=== PATIENT | male | born 1965 | race Caucasian/White ===

== ENCOUNTER 2018-08-27 13:00 | Outpatient (CLI) | payer BC, OTHER ==
[~2018-08-27] VITALS: Ht 188 cm; Wt 69.4 kg
[~2018-08-27 13:00] MED LIST: ALPR1TAB2 PO; DZPM2T; IBUP-1780 PO; LISI-552 PO
== END 2018-08-27 14:23 | disposition home or self-care (01) ==
LOC: PREOP 13:00
PROVIDERS: ATTEND Surgery
DX: Z01.818 Encounter for other preprocedural examination (principal)

== ENCOUNTER 2018-09-02 12:42 | Day surgery (SDC) | payer BC, OTHER ==
[~2018-09-02] VITALS: Ht 188 cm; Wt 69.4 kg
[2018-09-02 12:45] VITALS: BP 120/82
--- OUTSIDE RECORDS SUMMARY | 2018-09-02 12:45 | XMS REPORT | Continuity of Care Document ---
Author Author [facility] Organization [facility] Address Unknown Phone Unavailable Allergies Active Description Code Type Severity Reaction Onset Reported/Identified Relationship to Patient Clinical Status Yes BUTORPHANOL TARTRATE UNKNOWN GI PROBLEMS - VOMITI Yes No Known Drug Allergies [id number] Drug Allergy Mild N/A 05/24/2008 Medications There is no data. Problems Date Dx Coded Attending Type Code Diagnosis Diagnosed By 08/14/2018 Rossy Gilliland W 780.4 DIZZINESS AND GIDDINESS 08/14/2018 Darshana, Rossy W R42 DIZZINESS AND GIDDINESS 08/14/2018 Darshana, Rossy W 300.00 08/14/2018 Darshana, Rossy W 578.1 BLOOD IN STOOL 08/14/2018 Darshana, Rossy W 780.4 DIZZINESS AND GIDDINESS 08/14/2018 Darshana, Rossy W 780.79 OTHER MALAISE AND FATIGUE 08/14/2018 Darshana, Rossy W 785.0 08/14/2018 Darshana, Rossy W 787.01 NAUSEA WITH VOMITING 08/14/2018 Darshana, Rossy W 787.91 DIARRHEA 08/14/2018 Darshana, Rossy W F41.9 ANXIETY DISORDER, UNSPECIFIED 08/14/2018 Darshana, Rossy W K92.1 MELENA 08/14/2018 Darshana, Rossy W R00.0 TACHYCARDIA, UNSPECIFIED 08/14/2018 Darshana, Rossy W R11.2 NAUSEA WITH VOMITING, UNSPECIFIED 08/14/2018 Darshana, Rossy W R19.7 DIARRHEA, UNSPECIFIED 08/14/2018 Darshana, Rossy W R42 DIZZINESS AND GIDDINESS 08/14/2018 Darshana, Rossy W R53.1 WEAKNESS 08/14/2018 Darshana, Rossy W 300.00 08/14/2018 Darshana, Rossy W 578.1 BLOOD IN STOOL 08/14/2018 Darshana, Rossy W 780.4 DIZZINESS AND GIDDINESS 08/14/2018 Darshana, Rossy W 780.79 08/14/2018 Darshana, Rossy W 785.0 08/14/2018 Darshana, Rossy W 787.01 08/14/2018 Darshana, Rossy W 787.91 DIARRHEA 08/14/2018 Darshana, Rossy W F41.9 ANXIETY DISORDER, UNSPECIFIED 08/14/2018 Darshana, Rossy W K92.1 MELENA 08/14/2018 Darshana, Rossy W R00.0 TACHYCARDIA, UNSPECIFIED 08/14/2018 Darshana, Rossy W R11.2 NAUSEA WITH VOMITING, UNSPECIFIED 08/14/2018 Darshana, Rossy W R19.7 DIARRHEA, UNSPECIFIED 08/14/2018 Darshana, Rossy W R42 DIZZINESS AND GIDDINESS 08/14/2018 Darshana, Rossy W R53.1 WEAKNESS 08/27/2018 ROSALINO SELF DO Ot Z01.818 ENCOUNTER FOR OTHER PREPROCEDURAL EXAMIN 08/27/2018 ROSALINO SELF DO B Ot Z01.818 ENCOUNTER FOR OTHER PREPROCEDURAL EXAMIN 08/27/2018 CATY SELF DOIC B Ot Z01.818 ENCOUNTER FOR OTHER PREPROCEDURAL EXAMIN 08/31/2018 CATY SELF DOIC B Ot Z01.818 ENCOUNTER FOR OTHER PREPROCEDURAL EXAMIN Procedures There is no data. Results Test Result Range Stool Culture - 08/14/18 09:50 Stool Culture Note Ova + Parasite Exam - 08/14/18 09:50 Ova + Parasite Exam Note C.difficile, DNA Amplification - 08/14/18 09:50 C.difficile, DNA Amplification NEGATIVE: No DNA evidence of toxogenic C. difficile detected. Negative Stool Culture - 08/14/18 09:50 CAMPYLOBACTER CULTURE FINAL REPORT E COLI SHIGA TOXIN EIA NEGATIVE NEGATIVE RESULT 1 NO SALMONELLA OR SHIGELLA RECOVERED. Salmonella/Shigella Screen FINAL REPORT Result 1 NO CAMPYLOBACTER SPECIES ISOLATED. Ova + Parasite Exam - 08/14/18 09:50 OVA + PARASITE EXAM FINAL REPORT RESULT 1 NO OVA, CYSTS, OR PARASITES SEEN. Encounters ACCT No. Visit Date/Time Discharge Status Pt. Type Provider Facility Loc./Unit Complaint [id number] 08/27/2018 13:00:00 08/27/2018 14:23:00 DIS Outpatient ROSALINO SELF DO [facility] PREOP COLONOSCOPY/EGD [id number] 10/15/2014 02:31:00 10/15/2014 02:31:00 CAN Preadmit [place] [facility] ER [id number] 09/02/2018 14:40:00 PEN Preadmit ROSALINO SELF DO [facility] GALDINO HOOK [id number] 08/20/2018 04:12:00 Document Registration [id number] 08/14/2018 12:38:00 08/14/2018 23:59:00 DIS Outpatient Rossy Gilliland 10/15/2014 02:38:14 ACT Document Registration
[2018-09-02] MEDS ORDERED: LACTATED RINGERS 1,000 ML IV STA (12:47)
[2018-09-02] MEDS ORDERED: LACTATED RINGERS 1,000 ML IV ONE (12:48)
[2018-09-02] MEDS ORDERED: HURRICAINE EXT TUBE (BENZOCAINE) XX PRN (13:00)
--- NOTE | 2018-09-02 13:24 | Progress Note-Pre Operative ---
Pre-Operative Progress Note H&P Reviewed The H&P was reviewed, patient examined and no changes noted. Time Seen by Provider: 13:22 Date H&P Reviewed: Sep 02, 2018 Time H&P Reviewed: 13:21 Pre-Operative Diagnosis: ROSALINO Beltran DO Sep 02, 2018 13:24
[2018-09-02] MEDS ORDERED: PROPOFOL INJECTION 50 ML IV ONE (13:51)
[2018-09-02] MEDS ORDERED: MIDAZOLAM 2 MG/2 ML (VERSED) VIAL ONE ×2 (13:51→14:08)
[2018-09-02] MEDS ORDERED: fentaNYL INJECTION 100 MCG/2 ML AMP ONE (14:12)
[2018-09-02] MEDS ORDERED: proPOfol 200 MG/20 ML (DIPRIVAN) VIAL IV ONE (14:42)
--- NOTE | 2018-09-02 15:04 | Progress Note-Post Operative ---
Post-Operative Progess Note Surgeon (s)/Short Order Cook (s) Surgeon ROSALINO SELF DO Short Order Cook: Cipriano Giraldo MSIII Pre-Operative Diagnosis melena Post-Operative Diagnosis Duodenitis Gastritis ??Sims's Esophagus Colon Polyps Diverticula Internal Hemorrhoids Procedure & Operative Findings Date of Procedure 09/02/18 Procedure Performed/Findings EGD with bx Colon with snare Anesthesia Type IV sedation by AIRCRAFT ARMAMENT MECHANIC Estimated Blood Loss Estimated blood loss (mL): scant Specimens/Packing Specimens Removed Duodenal bx, Antral bx, GE jxn bx Colon Polyps ROSALINO SELF DO Sep 02, 2018 15:04
--- NOTE | 2018-09-02 15:06 | Endoscopy Discharge Instruct ---
Endo Procedure/Findings Findings 1.: Gastritis, Sims's Esophagus 2.: Polyp 3.: Diverticulosis 4.: Internal Hemorrhoids Discharge Instructions - Activity: You might feel a little sleepy until tomorrow. This is due to the medicine you received to relax you. Until tomorrow, you should: NOT drive a car, operate machinery or power tools. NOT drink any alcoholic beverages. NOT make any important decisions or sign importortant papers. Do not return to work until tomorrow, unless otherwise instructed. Resume previous activities tomorrow. Diet: Start by taking liquids. If you tolerate liquids, advance to solid food. Make an appointment in one week. Instructions: 1.: Colonoscopy in 1 year 2.: EGD in 1 year Notify Physician - If you experience excessive bleeding, unusual abdominal pain, fever, or chest pain, contact your doctor immediately. Follow-Up: - I have received and understand the above instructions and will call my doctor if I have any further questions. Patient Signature Date Nurse Signature Other (Relationship) ROSALINO SELF DO Sep 02, 2018 15:06
--- NOTE | 2018-09-02 15:07 | Anesthesia-General Post-Op ---
MAC Patient Condition Mental Status/LOC: Same as Preop Cardiovascular: Satisfactory Nausea/Vomiting: Absent Respiratory: Satisfactory Pain: Controlled Complications: Absent Post Op Complications Complications None Follow Up Care/Instructions Patient Instructions None needed. Anesthesiology Discharge Order Discharge Order Patient is doing well, no complaints, stable vital signs, no apparent adverse anesthesia problems. No complications reported per nursing. ERIBERTO CONRAD CRNA Sep 02, 2018 15:07
[2018-09-02 15:25] VITALS: BP 112/65
[2018-09-02 15:40] VITALS: BP 134/76
[2018-09-02 16:23] VITALS: BP 134/76
--- NOTE | 2018-09-03 22:03 | OPERATIVE REPORT ---
DATE OF SERVICE: 09/02/2018 PREOPERATIVE DIAGNOSES: Melena. POSTOPERATIVE DIAGNOSES: 1. Duodenitis. 2. Gastritis. 3. Questionable Sims esophagus. 4. Polyps. 4. Diverticula. 5. Internal hemorrhoids. PROCEDURES: 1. EGD with biopsy. 2. Colonoscopy with snare polypectomy. SURGEON: Pop Reyes DO STUDENT DEVELOPMENT SPECIALIST: None. ANESTHESIA: IV sedation by INFORMATION SYSTEMS AUDIT MANAGER. SPECIMEN: 1. Biopsy from the duodenum, biopsy from the fundus, biopsy from the antrum and biopsy from GE junction. 2. Descending colon polyp. 3. Transverse colon polyp. 4. Rectal polyp x2. 5. Transverse colon polyp. 6. Ascending colon. 7. Transverse. 8. Descending. 9. Sigmoid polyp. BLOOD LOSS: Scant. FLUIDS: Per anesthesia. POSTOPERATIVE CONDITION: Stable. INDICATION FOR PROCEDURE: The patient is a 53-year-old male who has been having some melena and needed a workup. FINDINGS: He had an EGD, which showed duodenitis, gastritis and questionable Sims's. Colon findings, he had multiple polyps and two or three of them were very large. He also had diverticula and some internal hemorrhoids. PROCEDURE NOTE: After informed consent was obtained, the patient was brought to the endoscopy suite, placed in the bed left lateral decubitus position. He was administered IV sedation. During the case his vitals monitored the entire time by the INFORMATION SYSTEMS AUDIT MANAGER. Started first with the EGD, passed the scope down the mouth through the esophagus and into the stomach. In the stomach pushed into the antrum, past the antrum into the duodenum, noted some duodenitis, took a biopsy here, pulled back and taken a biopsy of the antrum and then retroflexed, saw some more irritation and inflammation and did another biopsy of fundus. Then pulled back into the GE junction, looked like a Sims's esophagus and did another biopsy here. Pulled up, the rest of the esophagus looked fine and then pulled out and switched gloves and went to the other side using the scope and started the colonoscopy. On the way in noted 2 large polyps. Elected to go past these, but then trying to get to the cecum found multiple polyps, small polyps in the descending colon, transverse colon, couple of rectal polyps and then found in the transverse, ascending and then the descending and then large ones in the sigmoid colon. I was able to get all the way to cecum, took a picture of appendiceal orifice, noted some very small diverticula on the way in. Once in the cecum, took a picture of appendiceal orifice, noted the ileocecal valve and then I slowly withdrew the scope insufflating to look circumferentially at the [place] looking at the cecum up the ascending colon. This is where we had found 1 polyp to the hepatic flexure, down the transverse colon found multiple polyps here to the splenic flexure and into the descending colon. Again, found another 2 small polyps here and then down the sigmoid, we found 2 large polyps, one of which we have to take in 2 pieces to get the base and then down into the rectum, I found a couple of rectal polyps, removed these and then all with a snare polypectomy. The 2 larger ones, we had to use a larger snare to get them out. Retroflexed in the rectal vault and saw some minimal internal hemorrhoids, took a picture of this and then removed the scope. The patient tolerated the procedure and then he was recovered in endoscopy suite. Job ID: [id number] DocumentID: [id number] Dictated Date: 09/03/2018 21:05:29 Chipper Date: 09/03/2018 22:03:00 Dictated By: POP REYES DO
== END 2018-09-02 15:55 | disposition home or self-care (01) ==
LOC: ENDO 12:42
PROVIDERS: ATTEND Surgery
DX: K29.80 Duodenitis without bleeding (principal); K29.50 Unspecified chronic gastritis without bleeding; D12.4 Benign neoplasm of descending colon; D12.3 Benign neoplasm of transverse colon; D12.2 Benign neoplasm of ascending colon; D12.5 Benign neoplasm of sigmoid colon; K63.5 Polyp of colon; K57.30 Diverticulosis of large intestine without perforation or abscess without bleeding; K64.8 Other hemorrhoids; R49.0 Dysphonia; I10 Essential (primary) hypertension; F17.210 Nicotine dependence, cigarettes, uncomplicated
CPT/HCPCS: 88305

== ENCOUNTER 2018-09-29 10:22 | Outpatient (RCR) | payer OTHER | END 2018-12-28 | disposition home or self-care (01) | LOC: LAB 10:22 | PROVIDERS: ATTEND Surgery | DX: A04.8 Other specified bacterial intestinal infections (principal) | CPT/HCPCS: 36415; 87338 ==

== ENCOUNTER → 2021-09-25 | Outpatient (CLI) | payer OTHER ==
[~2021-09-25] MED LIST changes: -LISI-552 PO; +LISI20TA26 PO; +RT-ALBUTEROL SULF 2.5 MG/3 ML PRE-MIX VIAL INH ONE
== END ==
LOC: RT 13:00
PROVIDERS: ATTEND Registered Nurse
DX: R06.00 Dyspnea, unspecified (principal); Z72.0 Tobacco use
CPT/HCPCS: 94060; 94726; 94729